=== PATIENT | female | born 1970 | race Caucasian/White ===

== ENCOUNTER 2023-07-24 09:21 | Inpatient (IN) | payer BC ==
[2023-07-24 09:43] VITALS: TEMP 97.9
--- NOTE | 2023-07-24 10:04 | ED ---
SOB HPI - General Chief Complaint: Shortness of Breath Stated Complaint: SOB Time Seen by Provider: 07/24/23 09:40 Source: patient, RN notes reviewed Mode of arrival: ambulatory Limitations: no limitations - History of Present Illness Initial Comments: This is a 53-year-old female with a past medical history of with a [id number] history presents emergency department chief complaint shortness of breath. Patient states that she seasonally experiencing shortness of breath and allergies. States that she was prescribed by her primary care provider and albuterol inhaler which she has been found to be using more frequently. She states that she will wake up in the night with difficulty breathing associated chest tightness. She endorses a dry cough. Denies fevers, rhinorrhea, extremity swelling, redness, recent travel. Denies history of DVT, PE, ME, CVA. Denies history of asthma and COPD. - Related Data Home Medications Medication Instructions Recorded Confirmed No Known Home Medications 07/24/23 07/24/23 Allergies Allergy/AdvReac Type Severity Reaction Status Date / Time No Known Allergies Allergy Verified 07/24/23 12:36 Review of Systems ROS Statement: Those systems with pertinent positive or pertinent negative responses have been documented in the HPI. ROS Other: All systems not noted in ROS Statement are negative. Past Medical History Past Medical History: No Reported History Past Surgical History: Tubal Ligation Additional Past Surgical History / Comment(s): bladder suspension Past Psychological History: Anxiety General Exam Limitations: no limitations General appearance: alert, in no apparent distress Head exam: Present: atraumatic, normocephalic, normal inspection Eye exam: Present: normal appearance, PERRL, EOMI. Absent: scleral icterus, conjunctival injection, periorbital swelling ENT exam: Present: normal exam, mucous membranes moist Neck exam: Present: normal inspection. Absent: tenderness, meningismus, lymphadenopathy Respiratory exam: Present: wheezes (Expiratory most notable over the left lung field). Absent: normal lung sounds bilaterally, respiratory distress, rales Cardiovascular Exam: Present: regular rate, normal rhythm, normal heart sounds. Absent: systolic murmur, diastolic murmur, rubs, gallop, clicks GI/Abdominal exam: Present: soft, normal bowel sounds. Absent: distended, tenderness, guarding, rebound, rigid Extremities exam: Present: normal inspection, full ROM, normal capillary refill. Absent: tenderness, pedal edema, joint swelling, calf tenderness Back exam: Present: normal inspection Neurological exam: Present: alert, oriented X3, CN II-XII intact Psychiatric exam: Present: normal affect, normal mood Skin exam: Present: warm, dry, intact, normal color. Absent: rash Course Vital Signs 07/24/23 07/24/23 07/24/23 09:27 10:30 11:00 Temperature 97.9 F Pulse Rate 81 68 72 Respiratory 16 22 14 Rate Blood Pressure 128/86 114/95 127/81 O2 Sat by Pulse 96 97 Oximetry 07/24/23 07/24/23 07/24/23 11:17 11:26 11:30 Temperature Pulse Rate 86 72 77 Respiratory 18 Rate Blood Pressure 121/84 O2 Sat by Pulse Oximetry 07/24/23 07/24/23 07/24/23 11:44 12:00 12:30 Temperature Pulse Rate 75 70 74 Respiratory 18 17 14 Rate Blood Pressure 117/70 117/70 114/83 O2 Sat by Pulse 95 96 Oximetry 07/24/23 07/24/23 07/24/23 13:00 14:00 14:30 Temperature Pulse Rate 77 75 76 Respiratory 14 18 19 Rate Blood Pressure 128/88 113/75 102/68 O2 Sat by Pulse 92 L 93 L Oximetry 07/24/23 15:00 Temperature Pulse Rate 74 Respiratory 20 Rate Blood Pressure 125/90 O2 Sat by Pulse 94 L Oximetry Medical Decision Making - Medical Decision Making Was pt. sent in by a medical professional or institution (, PA, PRESCHOOL AIDE, urgent care, hospital, or shelter...) When possible be specific @ -No Did you speak to anyone other than the patient for history (EMS, parent, family, police, friend...)? What history was obtained from this source @ -No Did you review nursing and triage notes (agree or disagree)? Why? @ -I reviewed and agree with nursing and triage notes Were old charts reviewed (outside hosp., previous admission, EMS record, old EKG, old radiological studies, urgent care reports/EKG's, shelter records)? Report findings @ -No old charts were reviewed Differential Diagnosis (chest pain, altered mental status, abdominal pain women, abdominal pain men, vaginal bleeding, weakness, fever, dyspnea, syncope, headache, dizziness, GI bleed, back pain, seizure, CVA, palpatations, mental health, musculoskeletal)? @ -Differential Dyspnea: Coronary syndrome, arrhythmia, tamponade, asthma, COPD, pulmonary embolism, pne umonia, pneumothorax, pulmonary effusion, anaphylaxis, diabetic ketoacidosis, flailed chest, pulmonary contusion, diaphragmatic rupture, anemia, neuromuscular, this is not meant to be an all-inclusive list. EKG interpreted by me (3pts min.). @ -Completed at 933, sinus rhythm, ventricular rate 89, NJ interval 143, QTc 406. No acute signs of ischemia. X-rays interpreted by me (1pt min.). @ -chest X-ray no acute cardiopulmonary process noted CT interpreted by me (1pt min.). @ -None done U/S interpreted by me (1pt. min.). @ -None done What testing was considered but not performed or refused? (CT, X-rays, U/S, labs)? Why? @ -None What meds were considered but not given or refused? Why? @ -None Did you discuss the management of the patient with other professionals (professionals i.e. , PA, PRESCHOOL AIDE, lab, RT, psych nurse, social insurance administrator, medical research scientist, teacher, chief school finance officer, bilingual patient support caseworker)? Give summary @ -Spoke with internal medicine team Dr. Olivares, in regard to admission due to patient's elevated troponin 0.04. Patient accepted for admission and cardiology will be on consult. Was smoking cessation discussed for >3mins.? @ -No Was critical care preformed (if so, how long)? @ -No Were there social determinants of health that impacted care today? How? (Homelessness, low income, unemployed, alcoholism, drug addiction, transportation, low edu. Level, literacy, decrease access to med. care, long term, rehab)? @ -No Was there de-escalation of care discussed even if they declined (Discuss DNR or withdrawal of care, Hospice)? DNR status @ -No What co-morbidities impacted this encounter? (DM, HTN, Smoking, COPD, CAD, Cancer, CVA, ARF, Chemo, Hep., AIDS, mental health diagnosis, sleep apnea, morbi d obesity)? @ -Tobacco abuse Was patient admitted / discharged? Hospital course, mention meds given and route, prescriptions, significant lab abnormalities, going to OR and other pertinent info. @ -Admitted. 53-year-old female with complaint of dyspnea and over the past few weeks. On cardiopulmonary examination there is noted expiratory wheezing most notable on the left lung field. Patient will be evaluated for chest pain with labs, chest x-ray. Patient is agreeable with plan. Additionally, patient will be given a breathing treatment and a shot of Decadron due to history of smoking and shortness of breath. On reevaluation, patient states that her shortness of breath is improved after breathing treatment. Additionally, discussed with patient that troponin came back elevated at 0.049 therefore she was started on a bolus of heparin and heparin infusion. Internal medicine was consulted for admission and accepted, cardiology on consult. D-dimer and BNP ordered which were nonelevated. Undiagnosed new problem with uncertain prognosis? @ -No Drug Therapy requiring intensive monitoring for toxicity (Heparin, Nitro, Insulin, Cardizem)? @ -Heparin drip Were any procedures done? @ -No Diagnosis/symptom? @ -Dyspnea, NSTEMI Acute, or Chronic, or Acute on Chronic? @ -Acute Uncomplicated (without systemic symptoms) or Complicated (systemic symptoms)? @ -Complicated Side effects of treatment? @ -No Exacerbation, Progression, or Severe Exacerbation? @ -No Poses a threat to life or bodily function? How? (Chest pain, USA, ME, pneumonia, PE, COPD, DKA, ARF, appy, cholecystitis, CVA, Diverticulitis, Homicidal, Suicidal, threat to staff... and all critical care pts) @ -Yes, NSTEMI can cause irreversible damage to the heart if not appropriately treated, and potential for multiorgan system dysfunction and possible failure. - Lab Data Result diagrams: 07/24/23 10:59 07/24/23 09:59 Lab Results 07/24/23 07/24/23 07/24/23 Range/Units 09:59 09:59 09:59 WBC (3.8-10.6) k/uL RBC (3.80-5.40) m/uL Hgb (11.4-16.0) gm/dL Hct (34.0-46.0) % MCV (80.0-100.0) fL MCH (25.0-35.0) pg MCHC (31.0-37.0) g/dL RDW (11.5-15.5) % Plt Count (150-450) k/uL MPV Neutrophils % % Lymphocytes % % Monocytes % % Eosinophils % % Basophils % % Neutrophils # (1.3-7.7) k/uL Lymphocytes # (1.0-4.8) k/uL Monocytes # (0-1.0) k/uL Eosinophils # (0-0.7) k/uL Basophils # (0-0.2) k/uL Anisocytosis PT (10.0-12.5) sec INR (<1.2) APTT (22.0-30.0) sec D-Dimer (<0.60) mg/L FEU Sodium 138 (137-145) mmol/L Potassium 4.8 (3.5-5.1) mmol/L Chloride 109 H (98-107) mmol/L Carbon Dioxide 20 L (22-30) mmol/L Anion Gap 9 mmol/L BUN 12 (7-17) mg/dL Creatinine 0.56 (0.52-1.04) mg/dL Est GFR (CKD-EPI)AfAm >90 (>60 ml/min/1.73 sqM) Est GFR (CKD-EPI)NonAf >90 (>60 ml/min/1.73 sqM) Glucose 100 H (74-99) mg/dL Plasma Lactic Acid Dwayne 1.0 (0.7-2.0) mmol/L Calcium 9.7 (8.4-10.2) mg/dL Total Bilirubin 1.2 (0.2-1.3) mg/dL AST 49 H (14-36) U/L ALT 35 H (4-34) U/L Alkaline Phosphatase 78 (38-126) U/L Troponin I 0.049 H* (0.000-0.034) ng/mL NT-Pro-B Natriuret Pep pg/mL Total Protein 8.2 (6.3-8.2) g/dL Albumin 4.8 (3.5-5.0) g/dL 07/24/23 07/24/23 07/24/23 Range/Units 09:59 10:59 10:59 WBC 7.6 (3.8-10.6) k/uL RBC 4.66 (3.80-5.40) m/uL Hgb 12.1 (11.4-16.0) gm/dL Hct 38.2 (34.0-46.0) % MCV 82.1 (80.0-100.0) fL MCH 26.0 (25.0-35.0) pg MCHC 31.7 (31.0-37.0) g/dL RDW 17.1 H (11.5-15.5) % Plt Count 326 (150-450) k/uL MPV 8.7 Neutrophils % 57 % Lymphocytes % 23 % Monocytes % 5 % Eosinophils % 13 % Basophils % 1 % Neutrophils # 4.3 (1.3-7.7) k/uL Lymphocytes # 1.7 (1.0-4.8) k/uL Monocytes # 0.4 (0-1.0) k/uL Eosinophils # 1.0 H (0-0.7) k/uL Basophils # 0.1 (0-0.2) k/uL Anisocytosis Slight PT 10.0 (10.0-12.5) sec INR 0.9 (<1.2) APTT 23.6 (22.0-30.0) sec D-Dimer (<0.60) mg/L FEU Sodium (137-145) mmol/L Potassium (3.5-5.1) mmol/L Chloride (98-107) mmol/L Carbon Dioxide (22-30) mmol/L Anion Gap mmol/L BUN (7-17) mg/dL Creatinine (0.52-1.04) mg/dL Est GFR (CKD-EPI)AfAm (>60 ml/min/1.73 sqM) Est GFR (CKD-EPI)NonAf (>60 ml/min/1.73 sqM) Glucose (74-99) mg/dL Plasma Lactic Acid Dwayne (0.7-2.0) mmol/L Calcium (8.4-10.2) mg/dL Total Bilirubin (0.2-1.3) mg/dL AST (14-36) U/L ALT (4-34) U/L Alkaline Phosphatase (38-126) U/L Troponin I (0.000-0.034) ng/mL NT-Pro-B Natriuret Pep 52 pg/mL Total Protein (6.3-8.2) g/dL Albumin (3.5-5.0) g/dL 05/22/24 Range/Units 10:59 WBC (3.8-10.6) k/uL RBC (3.80-5.40) m/uL Hgb (11.4-16.0) gm/dL Hct (34.0-46.0) % MCV (80.0-100.0) fL MCH (25.0-35.0) pg MCHC (31.0-37.0) g/dL RDW (11.5-15.5) % Plt Count (150-450) k/uL MPV Neutrophils % % Lymphocytes % % Monocytes % % Eosinophils % % Basophils % % Neutrophils # (1.3-7.7) k/uL Lymphocytes # (1.0-4.8) k/uL Monocytes # (0-1.0) k/uL Eosinophils # (0-0.7) k/uL Basophils # (0-0.2) k/uL Anisocytosis PT (10.0-12.5) sec INR (<1.2) APTT (22.0-30.0) sec D-Dimer 0.19 (<0.60) mg/L FEU Sodium (137-145) mmol/L Potassium (3.5-5.1) mmol/L Chloride (98-107) mmol/L Carbon Dioxide (22-30) mmol/L Anion Gap mmol/L BUN (7-17) mg/dL Creatinine (0.52-1.04) mg/dL Est GFR (CKD-EPI)AfAm (>60 ml/min/1.73 sqM) Est GFR (CKD-EPI)NonAf (>60 ml/min/1.73 sqM) Glucose (74-99) mg/dL Plasma Lactic Acid Dwayne (0.7-2.0) mmol/L Calcium (8.4-10.2) mg/dL Total Bilirubin (0.2-1.3) mg/dL AST (14-36) U/L ALT (4-34) U/L Alkaline Phosphatase (38-126) U/L Troponin I (0.000-0.034) ng/mL NT-Pro-B Natriuret Pep pg/mL Total Protein (6.3-8.2) g/dL Albumin (3.5-5.0) g/dL Disposition Clinical Impression: NSTEMI (non-ST elevated myocardial infarction), Dyspnea Disposition: ADMITTED IP TO THIS HOSP Condition: Good Decision to Admit Reason: Admit from EC Decision Date: 07/24/23 Decision Time: 12:25
--- NOTE | 2023-07-24 10:33 | XR ---
EXAMINATION TYPE: XR chest 2V DATE OF EXAM: 07/24/2023 10:23 AM CLINICAL INDICATION:Female, 53 years old with history of difficulty breathing; COMPARISON: None TECHNIQUE: XR chest 2V Frontal and lateral views of the chest. FINDINGS: Lungs/Pleura: There is no evidence of pleural effusion, focal consolidation, or pneumothorax. Pulmonary vascularity: Unremarkable. Heart/mediastinum: Cardiomediastinal silhouette is unremarkable. Musculoskeletal: No acute osseous pathology. IMPRESSION: No acute cardiopulmonary disease/process.
[2023-07-24 10:39] LABS: ALT 35 U/L (4-34); AST 49 U/L (14-36); African American GFR (CKD) >90 (>60 ml/min/1.73 sqM); Albumin 4.8 g/dL (3.5-5.0); Alkaline Phosphatase 78 U/L (38-126); Anion Gap 9 mmol/L; Blood Urea Nitrogen 12 mg/dL (7-17); Calcium 9.7 mg/dL (8.4-10.2); Carbon Dioxide 20 mmol/L (22-30); Chloride 109 mmol/L (98-107); Glucose 100 mg/dL (74-99); Non-African American GFR(CKD) >90 (>60 ml/min/1.73 sqM); Sodium 138 mmol/L (137-145); Total Bilirubin 1.2 mg/dL (0.2-1.3); Total Protein 8.2 g/dL (6.3-8.2)
[2023-07-24 11:00] LABS: Potassium 4.8 mmol/L (3.5-5.1)
[2023-07-24] MEDS: DEXAMETHASONE SOD PHOSPHATE 4 MG/ML 1 ML VIAL IVP STA (11:00)
[2023-07-24] MEDS: IPRATROPIUM-ALBUTEROL 3 ML NEB INHALATION STA (11:16)
[2023-07-24 11:24] LABS: Anisocytosis Slight; Basophils # (A) 0.1 k/uL (0-0.2); Basophils % (A) 1 %; Eosinophils % (A) 13 %; HCT 38.2 % (34.0-46.0); HGB 12.1 gm/dL (11.4-16.0); Lymphocytes # (A) 1.7 k/uL (1.0-4.8); Lymphocytes % (A) 23 %; MCHC 31.7 g/dL (31.0-37.0); MCV 82.1 fL (80.0-100.0); Mean Platelet Volume 8.7; Monocytes # (A) 0.4 k/uL (0-1.0); Monocytes % (A) 5 %; Neutrophils # (A) 4.3 k/uL (1.3-7.7); Neutrophils % (A) 57 %; Platelet Count 326 k/uL (150-450); RBC 4.66 m/uL (3.80-5.40); RDW 17.1 % (11.5-15.5); WBC 7.6 k/uL (3.8-10.6)
[2023-07-24 11:37] LABS: INR 0.9 (<1.2); Partial Thromboplastin Time 23.6 sec (22.0-30.0)
[2023-07-24] MEDS ORDERED: NALOXONE 0.4 MG/ML 1 ML VIAL IV PRN (12:25)
[2023-07-24] MEDS ORDERED: ACETAMINOPHEN TAB 325 MG TAB PO PRN (12:25)
[2023-07-24] MEDS ORDERED: HYDROmorphone 0.5 MG/0.5 ML SYRINGE IVP PRN (12:25)
[2023-07-24] MEDS ORDERED: HEPARIN SODIUM 1,000 UN/ML (10ML VL) IV PRN (12:37)
[2023-07-24] MEDS: HEPARIN SODIUM 1,000 UN/ML (10ML VL) IVP ONE (13:06)
[2023-07-24] MEDS: HEPARIN SOD,PORK IN 0.45% NACL 25,000 UNIT in 0.45% NACL 1 250ML.BAG IV SCH (13:07)
[2023-07-24] MEDS: HEPARIN SODIUM 1,000 UN/ML (10ML VL) IV ONE (13:08)
--- NOTE | 2023-07-24 18:45 | P.HPIM ---
History of Present Illness H&P Date: 07/24/23 Chief Complaint: dyspnea 53 year old woman, smoker, with no reported medical history presented for dyspnea. Patient states that every year she has some allergies and some whe ezing for which she was previously prescribed albuterol inhaler. Normally, she takes her albuterol inhaler and this improves her symptoms within 24 hours. However, she has been trying her albuterol inhaler every 4-6 hours and has not had major resolution of symptoms, therefore presented to the emergency room for further evaluation. Patient denies fevers, chills, nausea, vomiting, palpitations. She reports mild chest pain. She reports dry cough. She denies numbness/weakness of extremities. In the emergency room, patient was afebrile, 128/88, heart rate 77, 92% on room air. CBC is unremarkable. Basic metabolic panel shows mild acidosis with a CO2 of 20. Liver function test show an AST of 49, ALT of 35. Initial troponin is 0.049 then trended to less than 0.012. BNP was 52. Chest x-ray shows clear parenchyma bilaterally. EKG shows normal sinus rhythm with normal axis, normal intervals, no evidence of ischemia. All Systems reviewed and pertinent positives and negatives noted in HPI, all other symptoms are negative Gen: in no apparent distress, resting comfortably in bed Eyes: PERRL, no scleral injection or icterus HENT: normocephalic, atraumatic, good hearing acuity, moist mucous membranes Neck: no tracheal deviation, full range of motion Resp: good air exchange, breathing comfortably with no accessory muscle use, no tactile fremitus CVS: good distal perfusion x 4, no pitting edema GI: soft, NTTP, ND, no hepatosplenomegaly : no suprapubic tenderness, no CVAT, hays catheter not present MSK: no clubbing, no cyanosis, no noted contractures of extremities Skin: no noted rashes, petechiae; temperature of skin is appropriate Neuro: moving all extremities without signs of weakness, CN II-XII intact Psych: cooperative, euthymic mood, insight and judgment intact Labs and imaging as above Assessment/plan: Chest pain, atypical -On heparin drip, admitted to telemetry with cardiology consult -Aspirin load, then daily, statin daily -Cardiology consulted by the emergency room -cancel heparin gtt -I am deferring echo to cardiology group as I believe this patient's risk of having ACS is low given her presentation. COPD exacerbation -DuoNebs as needed -Switch to prednisone 40 mg daily, received dexamethasone in the ER -Can defer azithromycin/antibiotics -Consider Symbicort on discharge -Referral to pulmonology on discharge Patient is full code Past Medical History Past Medical History: No Reported History Past Surgical History: Tubal Ligation Additional Past Surgical History / Comment(s): bladder suspension Past Psychological History: Anxiety Medications and Allergies Home Medications Medication Instructions Recorded Confirmed Type No Known Home Medications 07/24/23 07/24/23 History Allergies Allergy/AdvReac Type Severity Reaction Status Date / Time No Known Allergies Allergy Verified 07/24/23 12:36 Physical Exam Osteopathic Statement: *. No significant issues noted on an osteopathic structural exam other than those noted in the History and Physical/Consult. Vitals: Vital Signs Temp Pulse Resp BP Pulse Ox 07/24/23 18:18 71 18 119/71 97 07/24/23 15:00 74 20 125/90 94 L 07/24/23 14:30 76 19 102/68 93 L 07/24/23 14:00 75 18 113/75 92 L 07/24/23 13:00 77 14 128/88 07/24/23 12:30 74 14 114/83 96 07/24/23 12:00 70 17 117/70 07/24/23 11:44 75 18 117/70 95 07/24/23 11:30 77 18 121/84 07/24/23 11:26 72 07/24/23 11:17 86 07/24/23 11:00 72 14 127/81 07/24/23 10:30 68 22 114/95 97 07/24/23 09:27 97.9 F 81 16 128/86 96 Intake and Output 07/24/23 07/24/23 07/24/23 06:59 14:59 22:59 Other: Weight 74.843 kg Results CBC & Chem 7: 07/24/23 10:59 07/24/23 09:59 Labs: Abnormal Lab Results - Last 24 Hours (Table) 07/24/23 07/24/23 07/24/23 Range/Units 09:59 09:59 10:59 RDW 17.1 H (11.5-15.5) % Eosinophils # 1.0 H (0-0.7) k/uL Chloride 109 H (98-107) mmol/L Carbon Dioxide 20 L (22-30) mmol/L Glucose 100 H (74-99) mg/dL AST 49 H (14-36) U/L ALT 35 H (4-34) U/L Troponin I 0.049 H* (0.000-0.034) ng/mL
[2023-07-24] MEDS: ASPIRIN 81 MG PO STA (18:53)
[2023-07-24] MEDS: IPRATROPIUM-ALBUTEROL 3 ML NEB INHALATION PRN (23:23)
[2023-07-25] MEDS ORDERED: BENZONATATE 100 MG CAP PO PRN (08:40)
[2023-07-25] MEDS: predniSONE 20 MG TAB PO SCH (08:43)
[2023-07-25] MEDS: ASPIRIN 81 MG PO SCH (08:56)
[2023-07-25] MEDS: ATORVASTATIN 40 MG TAB PO SCH (08:56)
[2023-07-25] MEDS ORDERED: ALPRAZolam 0.5 MG TAB PO PRN (08:57)
[2023-07-25] MEDS ORDERED: ALPRAZolam 0.25 MG TAB PO PRN (08:57)
[2023-07-25] MEDS ORDERED: NITROGLYCERIN SL TABS 0.4 MG TAB SUBLINGUAL PRN (08:57)
[2023-07-25] MEDS ORDERED: HEPARIN SODIUM 1,000 UN/ML (10ML VL) IV PRN (08:58)
[2023-07-25] MEDS: SODIUM CHLORIDE 0.9% 1,000 ML in EMPTY BAG 1 BAG IV SCH (09:33)
[2023-07-25] MEDS: HEPARIN SOD,PORK IN 0.45% NACL 25,000 UNIT in 0.45% NACL 1 250ML.BAG IV SCH (09:44)
[2023-07-25] MEDS: ASPIRIN 325 MG TAB PO STA (09:46)
[2023-07-25] MEDS: ATORVASTATIN 80 MG TAB PO STA (09:46)
[2023-07-25] MEDS ORDERED: LIDOCAINE 1% INJ 10MG/ML (20 ML MDV) ONE (11:59)
[2023-07-25] MEDS ORDERED: VERAPAMIL 2.5 MG/ML 2 ML AMP ONE (11:59)
[2023-07-25] MEDS ORDERED: fentaNYL (PF) 50 MCG/ML 2 ML AMP ONE (12:00)
[2023-07-25] MEDS: MIDAZOLAM 2 MG/2 ML VIAL IVP ONE ×2 (12:20→12:27)
[2023-07-25] MEDS: LIDOCAINE 1% INJ 10MG/ML (20 ML MDV) SQ ONE (12:20)
[2023-07-25] MEDS: IV FLUID CONTINUATION 1,000 ML IV ONE (12:20)
[2023-07-25] MEDS: VERAPAMIL SYRINGE (5 MG/10 ML) INTRAARTER ONE (12:22)
[2023-07-25] MEDS: fentaNYL (PF) 50 MCG/1 ML VIAL IVP ONE ×3 (12:24→12:30)
[2023-07-25] MEDS ORDERED: RX INFO: IV CONTRAST WAS GIVEN 1 EACH MISC MISCELLANE PRN (12:33)
--- NOTE | 2023-07-25 12:36 | P.PCN ---
Date of Procedure: 07/25/23 Operative Findings: CARDIAC CATHETERIZATION PERFORMING PHYSICIAN: Acosta Mays MD, RPVI PROCEDURE PERFORMED: 1. Selective right and left coronary angiogram 2. Left heart catheterization 3. Ultrasound-guided access of the right radial artery INDICATION: Acute non-ST elevation myocardial infarction COMPLICATION: None APPROACH: Right radial artery LEVEL OF SEDATION: Moderate with a sedation length of 11 minutes PROCEDURE DESCRIPTION: After obtaining an informed consent, the patient was brought to cardiac clinical laboratory aides teacher. Local anesthesia was performed using lidocaine subcutaneously. The right radial artery was cannulated using Seldinger technique, the guidewire passed easily, following that we advanced a 5-Lebanese sheath dilator assembly, the wire and dilator were removed and sheath was flushed. Following that, 2 mg of verapamil Selective right and left coronary angiogram using a 6-Lebanese JR4 and JL 3.5 catheters. Following that we did left heart catheterization using 6-Lebanese pigtail catheter. The procedure was completed there was no complication. SELECTIVE CORONARY ANGIOGRAM: The right coronary artery: Large-caliber vessel and a dominant vessel and is angiographically normal Left main: Is angiographically normal The left circumflex: Large caliber vessel nondominant vessel and is angiographically normal gives rise into an OM1 which appears to be normal The left anterior descending artery: Large-caliber vessel. Is angiographically normal. Gives rise into the first and second diagonal branches and both appear to be angiographically normal HEMODYNAMICS: The LVEDP was 11 mmHg with no significant gradient across aortic valve CONCLUSION: 1. Normal coronary angiogram 2. Normal left-sided filling pressure POSTPROCEDURE MANAGEMENT: Medical treatment
[2023-07-25] MEDS ORDERED: SODIUM CHLORIDE 0.9% 1,000 ML IV SCH (12:45)
--- NOTE | 2023-07-25 15:04 | P.DS ---
Providers Date of admission: 07/24/23 11:50 Expected date of discharge: 07/25/23 Attending physician: Dane Olivares MD Consults: 07/24/23 12:27 Consult Physician Stat Consulting Provider: Freedom Mo Consult Reason/Comments: NSTEMI Do you want consulting provider notified?: Yes Primary care physician: Shakir Stone Hospital Course: Chest pain, atypical COPD exacerbation Hospital Course: 53 year old woman, smoker, with no reported medical history presented for dyspnea. Patient states that every year she has some allergies and some wheezing for which she was previously prescribed albuterol inhaler. In the emergency room, patient was afebrile, 128/88, heart rate 77, 92% on room air. CBC is unremarkable. Basic metabolic panel shows mild acidosis with a CO2 of 20. Liver function test show an AST of 49, ALT of 35. Initial troponin is 0.049 then trended to less than 0.012. BNP was 53. Chest x-ray shows clear parenchyma bilaterally. EKG shows normal sinus rhythm with normal axis, normal intervals, no evidence of ischemia. Patient was seen in consultation with cardiology, who recommended left heart catheterization. She underwent that procedure this morning was found to have normal coronary arteries without any evidence of disease. She also returned to room air and had no further issues with dyspnea or wheezing. She was discharged home with smoking cessation recommendations as well as recommendations to follow-up with PCP. Patient would benefit from pulmonary function test as an outpatient. She was also given 3 additional days of prednisone. I spent 34 minutes coordinating this discharge Gen: in no apparent distress, resting comfortably in bed Eyes: PERRL, no scleral injection or icterus HENT: normocephalic, atraumatic, good hearing acuity, moist mucous membranes Neck: no tracheal deviation, full range of motion Resp: good air exchange, breathing comfortably with no accessory muscle use, no tactile fremitus CVS: good distal perfusion x 4, no pitting edema GI: soft, NTTP, ND, no hepatosplenomegaly : no suprapubic tenderness, no CVAT, hays catheter not present MSK: no clubbing, no cyanosis, no noted contractures of extremities Skin: no noted rashes, petechiae; temperature of skin is appropriate Neuro: moving all extremities without signs of weakness, CN II-XII intact Psych: cooperative, euthymic mood, insight and judgment intact Patient Condition at Discharge: Good Plan - Discharge Summary New Discharge Prescriptions: New Atorvastatin [Lipitor] 40 mg PO DAILY #30 tab Acetaminophen Tab [Tylenol] 650 mg PO Q6HR PRN tab PRN Reason: Mild Pain Or Fever > 100.5 predniSONE [Deltasone] 40 mg PO DAILY #6 tab Discharge Medication List Acetaminophen Tab [Tylenol] 650 mg PO Q6HR PRN tab 07/25/23 [Rx] Atorvastatin [Lipitor] 40 mg PO DAILY #30 tab 07/25/23 [Rx] predniSONE [Deltasone] 40 mg PO DAILY #6 tab 07/25/23 [Rx] Follow up Appointment(s)/Referral(s): Shakir Stone MD [Primary Care Provider] - 1-2 days Discharge Disposition: HOME SELF-CARE
[2023-07-25 16:50] VITALS: BP 104/68; PULSE 79; RESP 18
[2023-07-26] MEDS ORDERED: HEPARIN SODIUM,PORCINE 10,000 UNIT in SODIUM CHLORIDE 0.9% 1,000 ML IRRIGATION PRN (07:00)
[2023-07-26] MEDS ORDERED: HEPARIN SODIUM,PORCINE (1 ML) 2,500 UNIT in SODIUM CHLORIDE 0.9% 250 ML IRRIGATION PRN (07:00)
== END 2023-07-25 18:15 | disposition home or self-care (01) | DRG 287 ==
LOC: EC 09:21 → 3SCARD 11:50 → 4SSUR 07-25 09:17 → 3SCARD 07-25 10:27
PROVIDERS: ADMIT Student in an Organized Health Care Education/Training Program; ATTEND Student in an Organized Health Care Education/Training Program
PROC: 4A023N7 Measurement of Cardiac Sampling and Pressure, Left Heart, Percutaneous Approach (ICD-10-PCS; principal; 2023-07-25 11:30)
PROC: B2111ZZ Fluoroscopy of Multiple Coronary Arteries using Low Osmolar Contrast (ICD-10-PCS; 2023-07-25 11:30)
DX: R07.89 Other chest pain (principal); E87.20 Acidosis, unspecified; J44.1 Chronic obstructive pulmonary disease with (acute) exacerbation; Z28.310 Unvaccinated for COVID-19; F17.200 Nicotine dependence, unspecified, uncomplicated; Z71.6 Tobacco abuse counseling; F41.9 Anxiety disorder, unspecified
CPT/HCPCS: 36415; 71046; 76937; 80053; 83605; 83880; 84484; 85025; 85379; 85610; 85730; 93005; 93458; 94640; 96365; 96366; 96375; 99285